=== PATIENT | male | born 1960 ===

== ENCOUNTER 2017-11-09 09:46 | Emergency (ER) | payer BC ==
[~2017-11-09] VITALS: Ht 170.2 cm; Wt 88.5 kg
[2017-11-09] MEDS ORDERED: [UNRECOGNIZED DRUG - REMARK] (09:57)
== END 2017-11-09 10:45 | disposition home or self-care (01) ==
LOC: ER 09:46
DX: S91.332A Puncture wound without foreign body, left foot, initial encounter (principal); W26.8XXA Contact with other sharp object(s), not elsewhere classified, initial encounter; Y93.89 Activity, other specified; Y92.832 Beach as the place of occurrence of the external cause; Y99.8 Other external cause status